=== PATIENT | female | born 1995 | race Caucasian/White ===

== ENCOUNTER → 2020-02-19 09:08 | Outpatient (CLI) | payer OTHER, MEDICAID, SELFPAY ==
--- NOTE | 2020-02-19 09:11 | DI.US.S_ITS ---
PROCEDURE: US OB <= 14 WEEKS FETUS INDICATIONS: DATING AND VIABILITY OUTSIDE/PRIOR DATING DATA: Last menstrual period (LMP): 12/10/19. LMP-based estimated date of delivery (ERIC): 09/15/20. First dating scan (date and location): 02/20/20, [facility] Estimated date of delivery (ERIC) from first dating scan: 09/20/20. TECHNIQUE: Real-time scanning was performed of the fetus and maternal pelvic organs, with image documentation. COMPARISON: None. FINDINGS: Embryo: [place]-rump length with a heartbeat measuring 2.5 cm, 19 weeks 2 days. A yolk sac is seen. Small subchorionic hemorrhage measuring 1.8 x 1.1 x 1.6 cm. Measurement variability in dating: +/- 4 weeks by LMP, +/- 7 days by mean sac diameter (use before 6 weeks gestation if crown-rump length not able to be measured), +/- 5 days by crown-rump length (up to 8 weeks 6 days gestation), +/- 7 days by crown-rump length (up to 13 weeks 6 days gestation). Maternal organs: Ovaries: There is a right ovarian cyst measuring 5.7 x 4.6 x 6.1 cm. IMPRESSION: 1. Living first trimester intrauterine with crown-rump length of heartbeat measuring 9 weeks 2 days. 2. Small subchorionic hemorrhage. 3. Right ovarian cyst measuring 6.1 cm in maximum diameter. Dictated by: Holden Wu M.D. on 02/19/2020 at 10:01 Approved by: Holden Wu M.D. on 02/19/2020 at 10:06
== END ==
PROVIDERS: Family Provider Specialist; PCP Specialist; Referring Provider Family Medicine; Visit Provider Family Medicine
DX: O34.81 Maternal care for other abnormalities of pelvic organs, first trimester (principal); O20.9 Hemorrhage in early pregnancy, unspecified; N83.201 Unspecified ovarian cyst, right side; Z3A.09 9 weeks gestation of pregnancy
CPT/HCPCS: 76801

== ENCOUNTER → 2020-03-19 11:27 | Outpatient (CLI) | payer OTHER, MEDICAID, SELFPAY ==
[2020-03-19 12:02] LABS: Add Manual Diff / Slide Review NO; Basophils Absolute Auto 100 /uL (0-100); Basophils Percent Auto 0.8 % (0-2); Eosinophils Absolute Auto 200 /uL (0-450); Eosinophils Percent Auto 3.2 % (2-4); Hematocrit 39.1 % (36-46); Hemoglobin 13.1 g/dL (12.0-16.0); Lymphocytes Absolute Auto 2100 /uL (1100-4500); Lymphocytes Percent Auto 32.6 % (25-40); Mean Corpuscular HGB Conc 33.6 % (30-36); Mean Corpuscular Hemoglobin 30.3 PG (26-34); Mean Corpuscular Volume 90.2 fL (80-100); Monocytes Absolute Auto 300 /uL (0-900); Monocytes Percent Auto 4.7 % (3-14); Neutrophils Absolute Auto 3800 /uL (1500-7000); Neutrophils Percent Auto 58.7 % (50-75); Platelet Count 195 X10^3/uL (150-400); Red Blood Cell Count 4.34 X10^6/uL (4.0-5.2); Red Cell Distribution Width 14.1 % (11.6-14.8); White Blood Cell Count 6.5 X10^3/uL (4.5-11.0)
[2020-03-19 12:35] LABS: Appearance Urine UA CLOUDY; Bilirubin Urine UA NEGATIVE (NEGATIVE); Color Urine UA YELLOW; Glucose Urine UA NEGATIVE (Negative); Ketones Urine UA NEGATIVE (NEGATIVE); Leukocyte Esterase Urine UA 1+ (NEGATIVE); Nitrite Urine UA NEGATIVE (Negative); Occult Blood Urine UA TRACE-LYSED (Negative); Protein Urine UA NEGATIVE (Negative)
[2020-03-19 12:38] LABS: pH Urine UA 6.5 (4.5-8.0)
[2020-03-19 12:46] LABS: RBC Urine 0-1/HPF (0-5/HPF)
[2020-03-19 12:47] LABS: Amorphous Sediment Urine 1+; Bacteria Urine Many (>30); Mucus Urine 1+ (Negative); Squamous Epithelial Cell Urine 10-30 /HPF (0-5/HPF); WBC Urine 5-10/HPF (0-5/HPF)
[2020-03-19 13:14] LABS: Hepatitis B Surface Antigen NEGATIVE s/c (NEGATIVE); Rubella Antibody IgG 16.2 IU/mL (>15)
[2020-03-19 13:29] LABS: HIV 1 & 2 Ab/Ag 4th Gen Combo NEGATIVE (NEGATIVE); Hep C Virus Ab w/Reflex Quant NEGATIVE s/c (NEGATIVE)
[2020-03-20 04:39] LABS: RPR Screen Non Reactive (Non Reactive)
[2020-03-20 08:13] LABS: Varicella IgG Antibody <135 index (Immune >165)
== END ==
PROVIDERS: Family Provider Specialist; Referring Provider Family Medicine; Visit Provider Family Medicine
DX: Z34.90 Encounter for supervision of normal pregnancy, unspecified, unspecified trimester (principal)
CPT/HCPCS: 36415; 80055; 81003; 81015; 86787; 86803; 86850; 86900; 86901; 87086; 87389

== ENCOUNTER → 2020-03-25 15:02 | Outpatient (CLI) | payer OTHER, MEDICAID, SELFPAY ==
[2020-03-27 21:36] LABS: AFP, Serum 20.9 ng/mL (.); Calc Gestational Age Ultrasound (.); Estriol, Free 0.66 ng/mL (.); Inhibin A, Dimeric 74.02 pg/mL (.); Maternal Ethnicity Caucasian (.); Maternal Weight 215 lbs (.); Number of Fetuses No (.); OSBR Risk 1 IN 10000 (.); Results Report (.); Test Results *Screen Negative* (.); hCG, MoM 0.51 (.); hCG, Serum 24000 mIU/mL (.)
== END ==
PROVIDERS: Family Provider Specialist; Referring Provider Family Medicine; Visit Provider Family Medicine
DX: Z34.92 Encounter for supervision of normal pregnancy, unspecified, second trimester (principal); Z3A.15 15 weeks gestation of pregnancy
CPT/HCPCS: 36415; 82105; 82677; 84702; 86336

== ENCOUNTER → 2020-04-29 09:01 | Outpatient (CLI) | payer OTHER, MEDICAID, SELFPAY ==
--- NOTE | 2020-04-29 09:02 | DI.US.S_ITS ---
PROCEDURE: US OB >= 14 WEEKS FETUS INDICATIONS: ANATOMY SCAN OUTSIDE/PRIOR DATING DATA: Last menstrual period (LMP): December 10, 2019. LMP-based estimated date of delivery (ERIC): September 15, 2020 . First dating scan (date and location): February 19, 2020 . Estimated date of delivery (ERIC) from first dating scan: September 20, 2020 . TECHNIQUE: Real-time scanning was performed of the fetus, with image documentation and biometric measurements. Endovaginal scanning: Not performed. COMPARISON: None. FINDINGS: General: A single living intrauterine gestation is present. Presentation: Variable. Placenta: Placental position is posterior , without previa. Amniotic fluid index: 12.9 cm, normal range is 5-24 cm. Largest vertical fluid pocket measured 3.7 cm. heart rate: 139 beats per minute. Maternal cervical canal: 3.5 cm long. Normal lower limit is 2.5 cm. Redemonstration of right ovarian cyst measuring up to 6.0 cm. biometrics: Biparietal diameter: 4.55 cm, correlating with 19 weeks and 5 days Head circumference: 17.75 cm, correlating with 20 weeks and 2 days Abdominal circumference: 14.3 cm, correlating with 19 weeks and 4 days Femur length: 3.44 cm, correlating with 20 weeks and 6 days Estimated gestational age from initial scan: not applicable. Composite gestational age from present scan: 20 weeks and 1 day Estimated weight and percentile: 337 [address] which [address] the fetus within the 86 percentile based off to station all age. Measurement variability for biometric dating: +/- 7 days from 14 weeks to 15 weeks 6 days gestation, +/- 10 days from 16 weeks to 21 weeks 6 days gestation, +/- 2 weeks from 22 weeks to 27 weeks 6 days gestation, +/- 3 weeks for 28 weeks gestation or later. weight reference: 4500 g or EFW >90/95% is considered macrosomia or large for gestational age. EFW <10% is small for gestational age. EFW 5% or less is considered intra-uterine growth restriction. Anatomic survey: Neuro: Ventricles are non-dilated at less than 10 mm. Cisterna magna is normal at 3-11 mm. Cerebellum is normal in size and morphology. Nuchal skin fold: Normal at less than 6 mm between 14-21 weeks gestational age. Face: Nose and lips , and the facial profile were not well seen Spine: No evidence for spina bifida. Heart: 4-chambered heart is present, with normal ventricular outflow tracts. Diaphragm: Diaphragm is intact. Stomach: Left-sided stomach is present. Kidneys: No hydronephrosis. Normal is less than 5 mm in 2nd trimester, less than 7 mm in 3rd trimester. Cord: 3-vessel cord has orthotopic insertion. Bladder: Normal in size. Extremities: All 4 extremities identified. IMPRESSION: 1. Single living intrauterine gestation with an estimated sonographic gestational age of approximately 20 weeks and 1 day correlating with estimated date of delivery of September 20, 2020. Expected interval growth has occurred. 2. The nose, lips, and facial profile were not well visualized on today's study. Follow-up recommended. 3. Estimated weight of approximately 337 g which [address] the fetus within the 86th percentile based off gestational age. 4. Stable right maternal ovarian cyst. Dictated by: Grey Escobar M.D. on 04/29/2020 at 15:25 Approved by: Grey Escobar M.D. on 04/29/2020 at 17:11
== END ==
PROVIDERS: Family Provider Specialist; Referring Provider Family Medicine; Visit Provider Family Medicine
DX: O34.82 Maternal care for other abnormalities of pelvic organs, second trimester (principal); N83.201 Unspecified ovarian cyst, right side; Z3A.20 20 weeks gestation of pregnancy
CPT/HCPCS: 76811

== ENCOUNTER → 2020-05-10 09:48 | Outpatient (CLI) | payer OTHER, MEDICAID, SELFPAY ==
--- NOTE | 2020-05-10 09:51 | DI.US.S_ITS ---
PROCEDURE: US OB FOLLOW UP INDICATIONS: follow-up nose/lips and profile OUTSIDE/PRIOR DATING DATA: Last menstrual period (LMP): 12/10/19. LMP-based estimated date of delivery (ERIC): 09/15/20 . First dating scan (date and location): 02/19/20 . Estimated date of delivery (ERIC) from first dating scan: 09/20/20 . TECHNIQUE: Real-time scanning was performed of the fetus, with image documentation. Endovaginal scanning: Not performed COMPARISON: [facility], OB >= 14 WEEKS FETUS, 04/29/2020, 9:18. [facility], OB <= 14 WEEKS FETUS, 02/19/2020, 9:21. FINDINGS: A single living intrauterine gestation is present. Placenta: Placental position is posterior, without previa. Amniotic fluid index: 11.0 cm, normal range is 5-24 cm. heart rate: 144 beats per minute. Maternal cervical canal: 4.1 cm long. Normal lower limit is 2.5 cm. Estimated gestational age from initial scan: 21 weeks 0 days . There is normal appearance of the face/profile , nose , lips, stomach. IMPRESSION: Single living intrauterine fetus. Normal appearance of the nose, lips and facial profile. Dictated by: Jacoby Foster M.D. on 05/10/2020 at 16:00 Approved by: Jacoby Foster M.D. on 05/10/2020 at 16:06
== END ==
PROVIDERS: Family Provider Specialist; PCP Family Medicine; Referring Provider Family Medicine; Visit Provider Family Medicine
DX: Z36.2 Encounter for other antenatal screening follow-up (principal); Z3A.21 21 weeks gestation of pregnancy
CPT/HCPCS: 76816

== ENCOUNTER → 2020-06-18 12:47 | Outpatient (CLI) | payer OTHER, MEDICAID, SELFPAY ==
--- NOTE | 2020-06-18 12:47 | DI.US.S_ITS ---
PROCEDURE: US OB FOLLOW UP INDICATIONS: size >> dates, growth and LENA OUTSIDE/PRIOR DATING DATA: Last menstrual period (LMP): 12/10/19. LMP-based estimated date of delivery (ERIC): 09/15/20 . First dating scan (date and location): 02/19/20 . Estimated date of delivery (ERIC) from first dating scan: 09/20/20 . TECHNIQUE: Real-time scanning was performed of the fetus, with image documentation. Endovaginal scanning: Not needed COMPARISON: [facility], OB FOLLOW UP, 05/10/2020, 10:06. FINDINGS: A single living intrauterine gestation is present. Presentation: Vertex. Placenta: Placental position is posterior , without previa. Amniotic fluid index: 16.4 cm, normal range is 5-24 cm. heart rate: 135 beats per minute. Maternal cervical canal: 4.0 cm long. Normal lower limit is 2.5 cm. Estimated gestational age from initial scan: 26 weeks 4 days . biometry is internally consistent with a a current gestational age of 27 weeks 4 days, with estimated weight of 1105 g at the upper 81st percentile for current gestational age. BPD 6.7 cm, 26 weeks 6 days. Head circumference 25.7 cm, 28 weeks 0 days. Abdominal circumference 22.9 cm, 27 weeks 2 days. Femur length 5.3 cm, 28 weeks 1 day. Maternal right ovary simple cyst is stable over time measuring up to 3.8 x 4.8 x 5.7 cm. IMPRESSION: Appropriate interval growth, no anomaly suspected. The delivery date is projected to be centered on 09/20/20. Stable maternal right ovarian cyst. Dictated by: Nemesio Wiggins M.D. on 06/18/2020 at 17:11 Approved by: Nemesio Wiggins M.D. on 06/18/2020 at 17:16
== END ==
PROVIDERS: Family Provider Specialist; PCP Family Medicine; Referring Provider Family Medicine; Visit Provider Family Medicine
DX: O26.842 Uterine size-date discrepancy, second trimester (principal); O34.82 Maternal care for other abnormalities of pelvic organs, second trimester; N83.291 Other ovarian cyst, right side; Z3A.27 27 weeks gestation of pregnancy
CPT/HCPCS: 76816

== ENCOUNTER → 2020-08-20 13:13 | Outpatient (CLI) | payer OTHER, MEDICAID, SELFPAY ==
[2020-08-21 13:06] LABS: Strep Grp B PCR NEG for Grp B Strep
== END ==
PROVIDERS: Family Provider Specialist; PCP Family Medicine; Visit Provider Family Medicine
DX: Z34.90 Encounter for supervision of normal pregnancy, unspecified, unspecified trimester (principal); Z3A.36 36 weeks gestation of pregnancy
CPT/HCPCS: 87653

== ENCOUNTER 2020-09-18 22:04 | Inpatient (IN) | payer OTHER, MEDICAID, SELFPAY ==
[2020-09-18 23:10] LABS: COVID19 -Nasal RAPID Negative (Negative)
[2020-09-18 23:20] VITALS: BP 113/62
[2020-09-19 07:23] LABS: Add Manual Diff / Slide Review NO; Basophils Absolute Auto 100 /uL (0-100); Basophils Percent Auto 0.5 % (0-2); Eosinophils Absolute Auto 200 /uL (0-450); Eosinophils Percent Auto 1.1 % (2-4); Hematocrit 39.1 % (36-46); Hemoglobin 12.7 g/dL (12.0-16.0); Lymphocytes Absolute Auto 3400 /uL (1100-4500); Lymphocytes Percent Auto 24.2 % (25-40); Mean Corpuscular HGB Conc 32.6 % (30-36); Mean Corpuscular Hemoglobin 27.9 PG (26-34); Mean Corpuscular Volume 85.7 fL (80-100); Monocytes Absolute Auto 800 /uL (0-900); Monocytes Percent Auto 5.8 % (3-14); Neutrophils Absolute Auto 9500 /uL (1500-7000); Neutrophils Percent Auto 68.4 % (50-75); Platelet Count 239 X10^3/uL (150-400); Red Blood Cell Count 4.56 X10^6/uL (4.0-5.2); Red Cell Distribution Width 14.8 % (11.6-14.8); White Blood Cell Count 13.9 X10^3/uL (4.5-11.0)
[2020-09-19] MEDS: LACTATED RINGERS 1,000 ML 100 ML IV (07:35)
[2020-09-19] MEDS: OXYTOCIN 10 UNIT/ML VIAL 20 UNIT (08:07)
--- NOTE | 2020-09-19 08:27 | PM.OBPRVD ---
Labor & Delivery Delivery date: 09/19/20 Intrapartal events: None Estimated blood loss (mL): 50 Anesthesia Type: None Complications: None Narrative: PROCEDURE: at 40w4d presented with PROM and was admitted to Labor and Delivery. The patient progressed through the 1st stage over 43 minutes. Pain was controlled with natural methods. The patient progressed through the 2nd stage over 17 minutes and delivered a viable male infant with APGARs 9/9 at 8:00 via without complications. The perineum and vagina were inspected with no lacerations. PREPROCEDURE DIAGNOSIS: Intrauterine at 40w4d PROM GBS negative RH positive POSTPROCEDURE DIAGNOSIS: Intrauterine at 40w4d, delivered Same as preprocedure PROCEDURE: Spontaneous vaginal delivery INDUCTION: No LABOR AUGMENTATION: No ROM APPEARANCE: Clear BABY A DELIVERY TIME: 8:00 BABY A OUTCOME: Viable BABY A SEX: Male BABY A WEIGHT: 8lb12.1oz BABY A PRESENTATION: Vertex BABY A POSITION: OA BABY A NUCHAL CORD: None BABY A # CORD VESSELS: 3 BABY A CORD GASES OBTAINED: No PLACENTA DELIVERY TIME: 8:05 PLACENTAL DELIVERY TYPE: Spontaneous PLACENTA APPEARANCE: Intact Baby 1: gender: Male score (1 min): 9 score (5 min): 9 Plan for aftercare: Normal care
--- NOTE | 2020-09-19 12:37 | P.HPOB_ITS ---
OB HPI Date/Time Date of admission: 09/18/20 Date Patient Seen: 09/19/20 Time Patient Seen: 07:45 History of Present Condition Chief complaint: maternity : 4 Para: 2 Estimated Date of Delivery: 09/15/20 Estimated Gestational Age (weeks): 40w4d Narrative: Lul Viera is a 24 year old at 40w4d who presented with LOF. The pt reports feeling a gush of fluid around 9pm last night that was clear. She had mild cramping, but no significant contractions. She denies any vaginal bleeding. She is feeling her baby move regularly. Contractions then became strong around 4am this morning. History of Present care: good care, initiated at week # (11) and pounds weight gain (11) Dating criteria: LMP confirmed by 1st trimester US Ultrasounds: normal 1st trimester US and normal mid trimester US Obstetrical complications: none Medical complications: none Preadmission Labs Blood type: B (+) positive -: Antibody screen: negative, GBS status: negative, HBsAG: negative, HIV: negative and RPR/VDLR: negative -: Rubella: immune and Varicella: not immune HCT: 39.1 HCAB: negative Quad screen: Normal Prior (ies) History: 10/28/12 - spontaneous 03/22/14 - at 39w4d, 7lb5oz male 03/26/17 - at 38wks, 9cf05pl male Evaluation Evaluation Baseline heart rate: 125 Variability: Moderate (11-25) monitor accelerations: Present monitor decelerations: Absent Contraction Frequency (minutes): 2 Uterine Contraction Intensity: Strong/Firm Status: Category l Cervical dilation (cm): 10 Cervical effacement (%): 100 station: +2 Laboratory results: Laboratory Tests 09/18/20 09/18/20 09/18/20 07:15 07:15 22:49 WBC 13.9 H RBC 4.56 Hgb 12.7 Hct 39.1 MCV 85.7 MCH 27.9 MCHC 32.6 RDW 14.8 Plt Count 239 Neut % (Auto) 68.4 Lymph % (Auto) 24.2 L [place] % (Auto) 5.8 Eos % (Auto) 1.1 L Baso % (Auto) 0.5 Neut # (Auto) 9500 H Lymph # (Auto) 3400 [place] # (Auto) 800 Eos # (Auto) 200 Baso # (Auto) 100 SARS-CoV-2 (PCR) Negative Blood Type B Positive Antibody Screen Negative PFSH Medical History Eczema of left upper extremity Ovarian cyst (spontaneous vaginal delivery) (~2013) Surgical History History of laparoscopic appendectomy History of laparoscopic cholecystectomy (~2013) Family History Mother Toxic shock syndrome Father Unknown whether patient has any health problems Family estrangement Grandfather No problems noted. Grandmother Unknown whether patient has any health problems Grandfather Aneurysm Grandmother Unknown whether patient has any health problems Social History marital status: unmarried,living together number of children: 2 household members: significant other and children (and Sig.Other's children) pets and animals: Yes (X 2 dogs) education level: high school (5 credits short of her Diploma) occupational status: employed current occupational exposures/hazards: Yes Previous occupational history: works at the [employer] [place]/gnosticism: Rastafari special [place] needs: No Smoking Status: Former smoker Tobacco: How many years used: 5 second hand exposure: No alcohol intake: former (pre- : rare) substance use type: does not use Meds Home Medications and Allergies Home Medications Medication Instructions Recorded Confirmed Type No Known Home Medications 09/18/20 09/18/20 History Allergies Allergy/AdvReac Type Severity Reaction Status Date / Time No Known Allergies Allergy Uncoded 09/18/20 22:49 Exam Const General: cooperative, healthy appearing and comfortable Orientation: alert, awake and oriented x3 Resp Effort & Inspection: normal respiratory effort Auscultation: clear to auscultation bilaterally Cardio Rate: regular rate Rhythm: regular rhythm Heart Sounds: S1 normal, S2 normal and no murmurs GI Inspection: non-distended Palpation: soft and No tender Other: gravid Presentation: vertex Estimated Weight (lbs): 8 Extrem General: no clubbing, cyanosis or edema Objective Labs Result Diagrams: 09/18/20 07:15 Labs: Laboratory Results - last 24 hr 01/09/18/20 09/18/20 07:15 07:15 22:49 WBC 13.9 H RBC 4.56 Hgb 12.7 Hct 39.1 MCV 85.7 MCH 27.9 MCHC 32.6 RDW 14.8 Plt Count 239 Neut % (Auto) 68.4 Lymph % (Auto) 24.2 L [place] % (Auto) 5.8 Eos % (Auto) 1.1 L Baso % (Auto) 0.5 Neut # (Auto) 9500 H Lymph # (Auto) 3400 [place] # (Auto) 800 Eos # (Auto) 200 Baso # (Auto) 100 SARS-CoV-2 (PCR) Negative Blood Type B Positive Antibody Screen Negative Assessment and Plan Assessment and Plan Assessment and Plan narrative: 24yo at 40w4d here with PROM, no progressed into active labor. Rh positive, GBS negative. - Expectant management, anticipate - FHT reassuring - Natural methods for pain control - GBS negative, no prophylaxis indicated
--- NOTE | 2020-09-20 09:15 | PM.OBDS.1 ---
Discharge Providers Provider Date of admission: 09/18/20 22:04 Discharge Date: 09/20/20 Primary care physician: Judy Sumner MD Consults: 09/20/20 08:26 Consult to Head Start Coordinator Routine Comment: Discharge provider: Judy Sumner MD Summary Hospital Course Date Patient Seen: 09/20/20 Time Patient Seen: 08:50 Procedures: Spontaneous vaginal delivery Hospital Course: The pt was admitted with PROM. She progressed into active labor without augmentation. The patient is not from [facility] for pain control. She progressed to complete and had a spontaneous vaginal delivery of a viable baby boy at 8:00 a.m. on 09/19/2020. There were no lacerations. The patient tolerated delivery well. , there were no complications. At the time of discharge she was voiding, ambulating, and passing flatus without difficulty. Her lochia was decreasing appropriately. She was breast-feeding with good latch. Her pain was adequately controlled. She will follow-up in 6 weeks for check. She is considering a tubal ligation for contraception. Peripartum Data Delivery Method: Natural Vaginal Laceration Description: None Episiotomy description: None Procedures: Spontaneous vaginal delivery complications: none 1: Gender: Male Disposition of : home Discharge Diagnosis (1) Spontaneous vaginal delivery: Status: Acute Status at Discharge Cognitive/behavioral status at discharge: oriented Functional status at discharge: independent ambulation Overall status at discharge: patient is progressing back to baseline Time Spent with Patient Time attestation: Total time spent providing and/or coordinating discharge services: Objective Labs Result Diagrams: 09/18/20 07:15 Discharge Plan Discharge Plan Patient Disposition: Home Discharge orders & Medications Prescriptions: New ibuprofen 600 mg Tablet 600 mg PO Q6HR PRN (Reason: Pain, Mild (1-3)) Qty: 30 RF: 0 Follow up/Referrals: Judy Sumner MD [Primary Care Provider] - 6 Weeks (please f/u w/ Dr. Sumner on November 06 @ 11am. Please check in at 10:45am) Diet/Activity/Treatments Diet: Diet as Tolerated and Regular Skin/Wound/Dressing Care Report to your healthcare provider any signs of infection, such as:: chills, fever, increased pain and unusual drainage Visit Report/Discharge Packet Instructions: DI for Labor and Delivery, Vaginal Stand Alone Forms: Discharge: Care Visit Report Forms: Patient Portal/API, Stroke Signs & Symptoms Discharge Data Primary Care Provider: Judy Sumner Discharges patient from system. Discharge Date/Time: 09/20/20 10:58
== END 2020-09-20 10:58 | disposition home or self-care (01) | DRG 560 ==
PROVIDERS: Admitting Provider Family Medicine; Family Provider Specialist; PCP Family Medicine; Referring Provider Family Medicine; Visit Provider Family Medicine
DX: O48.0 Post-term pregnancy (principal); Z3A.40 40 weeks gestation of pregnancy; Z37.0 Single live birth; Z20.822 Contact with and (suspected) exposure to COVID-19
CPT/HCPCS: 36415; 59050; 59409; 85025; 86850; 86900; 86901; 87635; C9803; G0379; J2590

== ENCOUNTER → 2021-04-07 17:14 | Outpatient (CLI) | payer OTHER, MEDICAID, SELFPAY ==
[2021-04-07 18:34] LABS: HCG Quantitative /Beta subunit < 2.4 mIU/mL
== END ==
PROVIDERS: Family Provider Specialist; PCP Family Medicine; Referring Provider Family Medicine; Visit Provider Family Medicine
DX: Z34.90 Encounter for supervision of normal pregnancy, unspecified, unspecified trimester (principal)
CPT/HCPCS: 36415; 84702

== ENCOUNTER 2021-12-28 18:22 | Emergency (ER) | payer OTHER, MEDICAID, SELFPAY ==
[2021-12-28 18:24] VITALS: BP 135/72; PULSE 89; RESP 18; TEMP 36.9; O2SAT 100
[2021-12-28] MEDS: AMOXICILLIN/CLAV 875/125 MG 1 TAB PO (21:11)
[2021-12-28] MEDS: HYDROCODONE/ACET 5/325 PREPACK 1 BOTTLE MISC (21:12)
[2021-12-28 21:21] VITALS: BP 112/56; PULSE 78; RESP 16; O2SAT 98
--- NOTE | 2021-12-28 23:58 | ED_ITS ---
HPI - Dental/Oral General Chief complaint: Dental/Oral Stated complaint: left jaw down throat is swollen Time Seen by Provider: 12/28/21 19:48 Source: patient Mode of arrival: Ambulatory History of Present Illness HPI Narrative: 26-year-old female former smoker presents with family in the chief complaint of dental pain and some facial swelling over the past 24 hours. She states she has had an issue with a left lower molar for quite some time and denies any new injury. She states she has developed some pain and swelling along her left lower jaw over the past 24 hours. She denies any fever or chills nor other systemic findings such as nausea, vomiting. She has had no difficulty swallowing or breathing. She does occasionally get a bitter, foul tasting drainage in her mouth Related Data Previous Rx's Medication Instructions Recorded ibuprofen 600 mg tablet 600 mg PO Q6HR PRN #30 tab 09/20/20 amoxicillin 875 mg-potassium 1 tab PO Q12H #20 tab 12/28/21 clavulanate 125 mg tablet Allergies Allergy/AdvReac Type Severity Reaction Status Date / Time No Known Allergies Allergy Uncoded 09/18/20 22:49 Review of Systems Review of Systems Narrative: GENERAL: See HPI HEENT: See HPI RESPIRATORY: Denies dyspnea, cough, wheezing, hemoptysis, sputum. CARDIOVASCULAR: Denies chest pain, palpitations, orthopnea, edema, GASTROINTESTINAL: Denies nausea, vomiting, abdominal pain, diarrhea, constipation, melena. : Denies dysuria, frequency, incontinence, hematuria, urinary retention. MUSCULOSKELETAL: denies weakness, joint pain, or bony pain SKIN: Denies rash, skin lesions, or other NEUROLOGIC: Denies weakness, headache, numbness, change in speech, confusion, seizures, incoordination. PSYCHIATRIC: No concerning psychosocial issues. 12 point review of systems is negative except for those stated above Patient History Medical History Eczema of left upper extremity Ovarian cyst (spontaneous vaginal delivery) (~2013) Surgical History History of laparoscopic appendectomy History of laparoscopic cholecystectomy (~2013) Family History Mother Toxic shock syndrome Father Unknown whether patient has any health problems Family estrangement Grandfather No problems noted. Grandmother Unknown whether patient has any health problems Grandfather Aneurysm Grandmother Unknown whether patient has any health problems Social History marital status: unmarried,living together number of children: 2 household members: significant other and children (and Sig.Other's children) pets and animals: Yes (X 2 dogs) education level: high school (5 credits short of her Diploma) occupational status: employed current occupational exposures/hazards: Yes Previous occupational history: works at the [employer] [place]/christianity: Buddhist special [place] needs: No Smoking Status: Former smoker Tobacco: How many years used: 5 second hand exposure: No alcohol intake: former (pre- : rare) substance use type: does not use Smoking Status: Former smoker Exam Narrative Exam Narrative: GEN: AOx3 and in mild distress EYES: Pupils are equal, round, and reactive to light and accommodation. Extraoccular muscles are intact bilaterally. There is no subconjunctival hemorrhage or exudate. ENT: Minimal swelling overlying left mandible, no fluctuance or erythema, intraoral exam notes widespread poor dentition, no obvious drainage or palpable mass consistent with abscess amenable to drainage. CHEST: Lungs are clear to auscultation bilaterally and free of wheezes, rales, or rhonchi. Heart rate is regular rhythm, there are no murmurs, clicks, rubs, or gallops. There is no chest wall tenderness. ABD: Abdomen is soft and nontender. There is no guarding or rebound. Bowel sounds are normal in all 4 quadrants. There is no mass or organomegaly. EXT: Full painless ROM of all extremities with no loss of sensation or strength. SKIN: Warm, pink, and dry. No erythema or rash Initial Vital Signs Initial Vital Signs: Vital Signs Temperature 98.5 F 12/28/21 18:24 Pulse Rate 89 12/28/21 18:24 Respiratory Rate 18 12/28/21 18:24 Blood Pressure 135/72 12/28/21 18:24 Pulse Oximetry 100 12/28/21 18:24 Course Orders Ordered: Discontinued Medications Hydrocodone Bitart/Acetaminophen (Hydrocodone/Acet 5/325 Prepack) 1 bottle MISC SEEINSTR ONE Stop: 12/28/21 21:04 Last Admin: 12/28/21 21:12 Dose: 1 bottle Documented by: HUGO Amoxicillin/Clavulanate Potassium (Amoxicillin/Clav 875/125 Mg) 1 tab PO NOW ONE Stop: 12/28/21 21:04 Last Admin: 12/28/21 21:11 Dose: 1 tab Documented by: HUGO Vital Signs Vital signs: Vital Signs - 8 hr 12/28/21 18:24 12/28/21 21:21 Temperature 98.5 F Pulse Rate 89 78 Respiratory Rate 18 16 Blood Pressure 135/72 112/56 L Pulse Oximetry 100 98 MDM - Dental/Oral MDM Narrative Medical decision making narrative: Patient with reassuring history and physical exam. No systemic findings. Mild swelling from presumed odontogenic infection which based on history is already spontaneously draining. There is no significant face or neck swelling, no difficulty in controlling secretions, swallowing or breathing. Patient given return precautions and questions answered to her apparent satisfaction Discharge Plan Departure Patient Disposition: Home Clinical Impression: Dental abscess Instructions: Tooth Abscess Activity Restrictions/Additional Instructions: *You have been diagnosed with [left-sided dental abscess] *What to do: *Please continue to take your regular medications as directed. [ x] New medication prescriptions sent to your pharmacy: [ [facility]] [ ] New medication written as a paper prescription [ ] No new medications given *Please follow up with your primary Dental provider in 2-3 days, call for an appointment. Let them know you were seen in the Emergency Department and that we ask that you be seen in follow up. *Return to Emergency Department if you should have any new, worsening or concerning symptoms, such as [fever greater than 101 F, shaking chills, worsening pain, persistent vomiting or other bothersome symptoms] Prescriptions: New amoxicillin-pot clavulanate 875-125 mg tablet 1 tab PO Q12H Qty: 20 0RF No Action ibuprofen 600 mg Tablet 600 mg PO Q6HR PRN (Reason: Pain, Mild (1-3)) Qty: 30 0RF Referrals: Judy Sumner MD [Primary Care Provider] -
== END 2021-12-28 21:15 | disposition home or self-care (01) ==
PROVIDERS: Emergency Provider Emergency Medicine; Family Provider Specialist; PCP Family Medicine
DX: K04.7 Periapical abscess without sinus (principal)
CPT/HCPCS: 99283

== ENCOUNTER 2024-03-06 22:29 | Emergency (ER) | payer OTHER, MEDICAID, SELFPAY ==
[2024-03-06 22:49] VITALS: BP 138/72; PULSE 75; RESP 18; TEMP 36.6; O2SAT 100; BMI 38.2
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
[2024-03-07] MEDS: ACETAMINOPHEN 325 MG TABLET 650 MG PO (01:11)
[2024-03-07] MEDS: TETANUS DIPHTHERIA TOXOIDS 0.5 ML VIAL IM (01:11)
[2024-03-07] MEDS: cefTRIAXone 2,000 MG VIAL 1000 MG IM (01:12)
[2024-03-07] MEDS: LIDOCAINE 1% (PF) 5 ML INJ (01:13)
[2024-03-07 01:26] VITALS: BP 141/71; PULSE 73; RESP 20; O2SAT 100
[2024-03-07] MEDS: BACITRACIN OINT 0.9 GM PCKT 1 APPLIC TOP (01:30)
== END 2024-03-07 01:49 | disposition home or self-care (01) ==
PROVIDERS: Emergency Provider Emergency Medicine; Family Provider Specialist; PCP Family Medicine
DX: T24.001A Burn of unspecified degree of unspecified site of right lower limb, except ankle and foot, initial encounter (principal); L03.115 Cellulitis of right lower limb; X17.XXXA Contact with hot engines, machinery and tools, initial encounter; Z23 Encounter for immunization
CPT/HCPCS: 90471; 90714; 96372; 99283; J0696